=== PATIENT | female | born 1950 | race Caucasian/White ===

== ENCOUNTER 2017-07-27 07:36 | Day surgery (SDC) | payer MEDICARE, MEDICAID ==
[~2017-07-27] VITALS: Ht 154.9 cm; Wt 84.1 kg
[2017-07-27] MEDS ORDERED: FentaNYL CITRATE-PF 100 MCG/2 ML VIAL ONE (07:50)
[2017-07-27] MEDS ORDERED: MIDAZOLAM HCL 2 MG/2 ML VIAL ONE (07:50)
[2017-07-27] MEDS ORDERED: SODIUM CHLORIDE 0.9% 1,000 ML IV ONE (08:00)
[2017-07-27] MEDS ORDERED: FAMO20 PO (08:31)
[2017-07-27] MEDS ORDERED: OS500 PO (08:31)
[2017-07-27] MEDS ORDERED: VITAD400 PO (08:31)
[2017-07-27] MEDS ORDERED: BECL8.7A7 PO (08:31)
[2017-07-27] MEDS ORDERED: HYDR25TA PO (08:31)
[2017-07-27] MEDS ORDERED: IBUP-2070 PO (08:31)
[2017-07-27] MEDS ORDERED: LORA10TA7 PO (08:31)
[2017-07-27] MEDS ORDERED: FLUT16H NASAL (08:31)
[2017-07-27] MEDS ORDERED: KETO15CR2 TP (08:31)
[2017-07-27] MEDS ORDERED: VALS160T2 PO (08:31)
[2017-07-27] MEDS ORDERED: AMLO-512 PO (08:31)
[2017-07-27] MEDS ORDERED: OMEP20 PO (08:31)
[2017-07-27] MEDS ORDERED: MONT10TA21 PO (08:31)
[2017-07-27] MEDS ORDERED: ASPI-556 PO (08:31)
[2017-07-27] MEDS ORDERED: MethylPREDNISolone SOD SUCC 125 MG/2 ML VIAL IVP ONE (09:15)
[2017-07-27] MEDS ORDERED: ACETAMINOPHEN 500 MG TABLET PO ONE (10:00)
[2017-07-27] MEDS ORDERED: ALBUTEROL SULFATE 2.5 MG/0.5 ML NEB SOLUTION NEB ONE (12:00)
[2017-07-27] MEDS ORDERED: BENZOCAINE 20% 50 MCG/SPRAY 57 GM TP ONE (12:00)
[2017-07-27] MEDS ORDERED: LIDOCAINE HCL 4% 50 ML SOLUTION TP ONE (12:00)
[2017-07-27] MEDS ORDERED: LIDOCAINE HCL 2% 30 ML JELLY TP ONE (12:00)
[2017-07-27] MEDS ORDERED: OXYGEN THERAPY IH SCH (20:00)
== END 2017-07-27 10:45 | disposition home or self-care (01) ==
LOC: SURGERY 07:36
PROVIDERS: ATTEND Internal Medicine Critical Care Medicine
DX: J38.4 Edema of larynx (principal); B37.0 Candidal stomatitis; E78.00 Pure hypercholesterolemia, unspecified; J84.111 Idiopathic interstitial pneumonia, not otherwise specified; I10 Essential (primary) hypertension; Z88.0 Allergy status to penicillin; Z79.82 Long term (current) use of aspirin; Z79.1 Long term (current) use of non-steroidal anti-inflammatories (NSAID); Z79.52 Long term (current) use of systemic steroids; Z79.899 Other long term (current) drug therapy; Z90.49 Acquired absence of other specified parts of digestive tract; Z98.890 Other specified postprocedural states
CPT/HCPCS: 31623; 31624; 71045; 87015; 87070; 87147; 87205; 87220; 88108; 88312; 94640; J2250; J2930; J3010